=== PATIENT | female | born 1950 | race Caucasian/White ===

== ENCOUNTER → 2016-06-29 | Outpatient (CLI) | payer MEDICARE, OTHER ==
--- NOTE | 2016-06-30 13:44 | MM ---
Reason for exam: screening (asymptomatic). Last mammogram was performed 1 year and 2 months ago. History: Patient is postmenopausal and is nulliparous. Benign US breast aspiration single RT of the right breast, October 29, 2014. Cyst aspiration of the left breast. Took estrogen for 5 years. Took progesterone for 5 years. Physical Findings: A clinical breast exam by your physician is recommended on an annual basis and results should be correlated with mammographic findings. MG 3D Screening Mammo W/Cad Bilateral CC and MLO view(s) were taken. Prior study comparison: April 22, 2015, right breast MG 3d diag mammo w/cad RT. October 29, 2014, right breast MG diagnostic mammo RT w CAD. There are scattered fibroglandular densities. There is chronic nodularity on the left breast. No significant changes when compared with prior studies. ASSESSMENT: Benign, BI-RAD 2 RECOMMENDATION: Routine screening mammogram of both breasts in 1 year.
== END | disposition home or self-care (01) ==
LOC: RADMAMWWP 16:25
PROVIDERS: ATTEND Family Medicine
DX: Z12.31 Encounter for screening mammogram for malignant neoplasm of breast (principal)
CPT/HCPCS: 77063; G0202

== ENCOUNTER → 2018-02-10 | Outpatient (CLI) | payer MEDICARE, OTHER ==
--- NOTE | 2018-02-10 10:40 | BD ---
EXAMINATION TYPE: Axial Bone Density DATE OF EXAM: 02/10/2018 CLINICAL HISTORY: Postmenopausal female. Osteoporosis screening. Height: 62.75 inches Weight: 220 FRAX RISK QUESTIONS: Alcohol (3 or more units per day): no Family History (Parent hip fracture): no Glucocorticoids (More than 3mos): no (Ex: prednisone, prednisolone, methylprednisolone, dexamethasone, and hydrocortisone). History of Fracture in Adulthood: no Secondary Osteoporosis: 1. Type 1 Diabetes: no 2. Hyperthyroidism: no 3. Menopause before 45: yes 4. Malnutrition: no 5. Chronic liver disease: no Rheumatoid Arthritis: tested but results unclear Current Tobacco Use: no RISK FACTORS HISTORY OF: Family History of Osteoporosis: mother & sister Active: yes Diet low in dairy products/other sources of calcium: lactose intolerant; but includes calcium rich f oods during week Postmenopausal woman: yes Take estrogen and/or progesterone medications: not now How long: about 5 years Lost more than 2 inches in height since high school: no Frequent falls: no Poor Health: no Hyperparathyroidism: no Adrenal Insufficiency: no MEDICATIONS: Prednisone or other steroids: no Thyroid Medications: no Osteoporosis Medications: no Additional Medications: eyedrops with steroids ; vitamin D; beta-jos Additional History: stage 3 kidney disease-Aleve induced; mitral valve prolapse EXAM MEASUREMENTS: Bone mineral densitometry was performed using the [employer] System. Bone mineral density as measured about the Lumbar spine is: ----- L1-L4(G/cm2): 1.100 T Score Values are as follows: ----- L2: -1.5 ----- L3: 0.4 ----- L4: 0.0 ----- L1-L4: -0.7 Bone mineral density has: Increased 8.2% since study of: 12/08/2001 Bone mineral density about the R hip (g/cm2): 0.781 Bone mineral density about the L hip (g/cm2): 0.751 T Score values are as follows: -----R Neck: -1.8 -----L Neck: -2.1 -----R Total: -1.7 -----L Total: -1.6 Bone mineral density has: Decreased -5.3% since study of: 12/08/2001 IMPRESSION: Osteopenia (T Score between -2.5 and -1). There is slightly increased risk of fracture and the patient may be considered for treatment. Re-Screen 2-5 years. NOTE: T-SCORE=SD OF THE YOUNG ADULT MEAN.
--- NOTE | 2018-02-10 12:36 | MM ---
Reason for exam: screening (asymptomatic). Last mammogram was performed 1 year and 7 months ago. History: Patient is postmenopausal and is nulliparous. Benign US breast aspiration single RT of the right breast, October 29, 2014. Cyst aspiration of the left breast. Took estrogen for 5 years. Took progesterone for 5 years. Physical Findings: A clinical breast exam by your physician is recommended on an annual basis and results should be correlated with mammographic findings. MG 3D Screening Mammo W/Cad Bilateral CC and MLO view(s) were taken. XCCM and XCCL view(s) were taken of the right breast. Prior study comparison: June 29, 2016, bilateral MG 3d screening mammo w/cad. April 22, 2015, right breast MG 3d diag mammo w/cad RT. Focal asymmetry 4cm from nipple outer right CC. Increasing nodularity upper outer left breast 4.2cm from nipple. This finding is changed when compared with previous exams. ASSESSMENT: Incomplete: need additional imaging evaluation, BI-RAD 0 RECOMMENDATION: Special view mammogram and ultrasound of both breasts. [facility] will attempt to contact patient to return for supplemental views and ultrasound.
== END | disposition home or self-care (01) ==
LOC: RADMAMWWP 07:21
PROVIDERS: ATTEND Family Medicine
DX: Z12.31 Encounter for screening mammogram for malignant neoplasm of breast (principal); M85.80 Other specified disorders of bone density and structure, unspecified site; Z78.0 Asymptomatic menopausal state
CPT/HCPCS: 77063; 77067; 77080

== ENCOUNTER → 2018-02-18 | Outpatient (CLI) | payer MEDICARE, OTHER ==
--- NOTE | 2018-02-21 09:28 | MM ---
Reason for exam: additional evaluation requested from abnormal screening. Last mammogram was performed less than 1 month ago. History: Patient is postmenopausal and is nulliparous. Benign US breast aspiration single RT of the right breast, October 29, 2014. Cyst aspiration of the left breast. Took estrogen for 5 years. Took progesterone for 5 years. Physical Findings: Nurse did not find any significant physical abnormalities on exam. MG 3D Work Up W/Cad JODI Bilateral spot compression CC, spot compression MLO, and ML view(s) were taken. CC with magnification and ML with magnification view(s) were taken of the right breast. Prior study comparison: February 10, 2018, bilateral MG 3d screening mammo w/cad. June 29, 2016, bilateral MG 3d screening mammo w/cad. Finding: There are round, segmental calcifications in the 12 o'clock middle position of the right breast 3cm from the nipple. These are more scattered on magnification views. Density outer right CC disperses on compression. No underlying density on left MLO. There are persistent oval densities. New finding since February 10, 2018. These results were verbally communicated with the patient and result sheet given to the patient on 02/18/18. ASSESSMENT: Incomplete: need additional imaging evaluation, BI-RAD 0 RECOMMENDATION: Ultrasound of the left breast.
--- NOTE | 2018-02-21 09:34 | USB ---
Reason for exam: additional evaluation requested from abnormal screening. History: Patient is postmenopausal and is nulliparous. Benign US breast aspiration single RT of the right breast, October 29, 2014. Cyst aspiration of the left breast. Took estrogen for 5 years. Took progesterone for 5 years. US Breast Workup Limited LT Left limited breast ultrasound including focal area of concern, retroareolar and axilla demonstrates a 1.1 x 0.6 x 0.9cm oval, cystic lesion at 3 o'clock, correlates with mammographic findings. These results were verbally communicated with the patient and result sheet given to the patient on 02/18/18. ASSESSMENT: Benign, BI-RAD 2 RECOMMENDATION: Return to routine screening mammogram schedule for both breasts.
== END ==
LOC: RADMAMWWP 14:01
PROVIDERS: ATTEND Family Medicine
DX: R92.8 Other abnormal and inconclusive findings on diagnostic imaging of breast (principal)
CPT/HCPCS: 77066; 76642; G0279; 77062

== ENCOUNTER → 2022-03-09 | Outpatient (CLI) | payer MEDICARE, OTHER ==
--- NOTE | 2022-03-10 20:18 | MM ---
Reason for Exam: Screening (asymptomatic). Last mammogram was performed 4 year(s) and 0 month(s) ago. Patient History: Menarche at age 13. Patient has no children. Postmenopausal. Patient used Estrogen for 5 years. Patient used Progesterone for 5 years. Cyst Aspiration on the Left side. 10/29/2014, Benign Cyst Aspiration on the right side. Risk Values: Jaycee 5 year model risk: 1.9%. NCI Lifetime model risk: 5.4%. Prior Study Comparison: 06/29/2016 Bilateral Screening Mammogram, [facility]. 02/10/2018 Bilateral Screening Mammogram, [facility]. 02/18/2018 Bilateral Diagnostic Mammogram, [facility]. Tissue Density: The breast tissue is heterogeneously dense. This may lower the sensitivity of mammography. Findings: Analyzed By CAD. Chronic bilateral nodularity. Scattered areas of punctate/round and coarse calcifications are redemonstrated. There is a area of irregular asymmetric density right MLO view and a middle depth just below the retroareolar plane for which further evaluation is recommended. It may represent superimposition shadow. There is also an area of 9 mm circumscribed nodularity which is larger in the subareolar left MLO view for which further evaluation is recommended. Not well-seen on the cc view. Otherwise, no significant change. Overall Assessment: Incomplete: need additional imaging evaluation, BI-RAD 0 Management: Special View Mammogram of both breasts. On the right, to include spot 3-D CC, spot 3-D MLO, and 3-D lateral views. On the left, to include spot 3-D MLO, and 3-D lateral views. Targeted ultrasound of either breast for any persisting abnormality. [facility] will attempt to contact patient to return for supplemental views and ultrasound if indicated. Electronically signed and approved by: Luis Calvo M.D. Radiologist
== END | disposition home or self-care (01) ==
LOC: RADMAMWWP 16:48
PROVIDERS: ATTEND Family Medicine
DX: Z12.31 Encounter for screening mammogram for malignant neoplasm of breast (principal); Z78.0 Asymptomatic menopausal state
CPT/HCPCS: 77063; 77067

== ENCOUNTER → 2022-03-17 | Outpatient (CLI) | payer MEDICARE, OTHER ==
--- NOTE | 2022-03-17 12:32 | USB ---
Reason for Exam: Additional evaluation requested from abnormal screening. Patient History: Menarche at age 13. Patient has no children. Postmenopausal. Patient used Estrogen for 5 years. Patient used Progesterone for 5 years. Cyst Aspiration on the Left side. 10/29/2014, Benign Cyst Aspiration on the right side. Risk Values: Jaycee 5 year model risk: 1.9%. NCI Lifetime model risk: 5.4%. Technique: Method: Targeted. Prior Study Comparison: 02/10/2018 Bilateral Screening Mammogram, [facility]. 02/18/2018 Bilateral Diagnostic Mammogram, [facility]. 03/09/2022 Bilateral MG 3D screening mammo w/cad, [facility]. Findings: The upper outer quadrant of the left breast, the axilla of the left breast and the retroareolar of the left breast were scanned. 2 nearby cysts are present within the anterior left breast 3 cm from the nipple 3:00 position. The first measures 0.6 x 0.5 x 0.5 cm. The second measures 0.5 x 0.5 x 0.5 cm. These appear to be simple cysts. Overall Assessment: Benign, BI-RAD 2 Management: Diagnostic Mammogram of both breasts in 6 months. A clinical breast exam by your physician is recommended on an annual basis and results should be correlated with mammographic findings. This exam should not preclude additional follow-up of suspicious palpable abnormalities. ??Results were given to the patient verbally at the time of exam. Electronically signed and approved by: Alvaro Benjamin D.O. Radiologis
--- NOTE | 2022-03-17 12:34 | MM ---
Reason for Exam: Additional evaluation requested from prior study. Last screening mammogram was performed less than 1 month ago. Patient History: Menarche at age 13. Patient has no children. Postmenopausal. Patient used Estrogen for 5 years. Patient used Progesterone for 5 years. Cyst Aspiration on the Left side. 10/29/2014, Benign Cyst Aspiration on the right side. Risk Values: Jaycee 5 year model risk: 1.9%. NCI Lifetime model risk: 5.4%. Prior Study Comparison: 02/18/2018 Bilateral Diagnostic Mammogram, [facility]. 03/09/2022 Bilateral MG 3D screening mammo w/cad, [facility]. Tissue Density: The breast tissue is heterogeneously dense. This may lower the sensitivity of mammography. Findings: Analyzed By CAD. Pattern appears symmetrical and stable. Left breast: There is persistence of the rounded density with smooth margins in the anterior left breast. Additional evaluation with ultrasound is recommended. Right breast: Under compression and additional imaging no suspicious irregular density is identified within the right breast corresponding higher abnormality. Findings may be summation density. Short-term follow-up is recommended. Overall Assessment: Incomplete: need additional imaging evaluation, BI-RAD 0 Management: Diagnostic Breast Ultrasound of the left breast. A clinical breast exam by your physician is recommended on an annual basis and results should be correlated with mammographic findings. This exam should not preclude additional follow-up of suspicious palpable abnormalities. Results were given to the patient verbally at the time of exam. Electronically signed and approved by: Alvaro Benjamin D.O. Radiologis
== END | disposition home or self-care (01) ==
LOC: RADMAMWWP 10:06
PROVIDERS: ATTEND Family Medicine
DX: R92.8 Other abnormal and inconclusive findings on diagnostic imaging of breast (principal); Z78.0 Asymptomatic menopausal state; Z98.890 Other specified postprocedural states
CPT/HCPCS: 77066; 76642; G0279; 77062

== ENCOUNTER 2022-09-04 08:38 | Day surgery (SDC) | payer MEDICARE, OTHER ==
[2022-09-02 12:11] VITALS: BMI 40.7
[~2022-09-04 08:38] MED LIST: LACTATED RINGERS 1,000 ML IV SCH
[2022-09-04 09:29] VITALS: RESP 16; TEMP 98
[2022-09-04] MEDS ORDERED: PROPOFOL 10 MG/ML 20 ML VIAL IV ONE (09:54)
--- NOTE | 2022-09-04 10:19 | P.PCN ---
Date of Procedure: 09/04/22 Procedure(s) Performed: BRIEF HISTORY: Patient is a 72-year-old pleasant white female scheduled for an elective colonoscopy as a part of evaluation of screening for colon cancer/positive cologuard PROCEDURE PERFORMED: Colonoscopy with snare polypectomy. PREOPERATIVE DIAGNOSIS: Screening for colon cancer/positive cologuard. IV sedation per Anesthesia. PROCEDURE: After informed consent was obtained, the patient, was brought into the endoscopy unit. IV sedation was administered by Anesthesia under continuous monitoring. Digital rectal examination was normal. Initially the Olympus CF-160 flexible video colonoscope was then inserted in the rectum, gradually advanced into the cecum without any difficulty. Careful examination was performed as the scope was gradually being withdrawn. Ileocecal valve and the appendiceal orifice were visualized and appeared normal. Prep was excellent. Mucosa of the cecum, ascending colon, transverse colon, appeared normal In the descending colon there was a 5 mm sessile polyp removed by snare polypectomy. Rest of the descending colon, sigmoid colon, and rectum appeared normal. Retroflexion was performed in the rectum and no lesions were seen. The patient tolerated the procedure well. IMPRESSION: 5 mm descending colon polyp status post polypectomy Scattered sigmoid diverticulosis RECOMMENDATIONS: Findings of this examination were discussed with the patient as well as her family. She was advised to follow with the biopsy results. If the biopsy results adenoma she can have a repeat colonoscopy in 5 years.
[2022-09-04 10:41] VITALS: BP 131/69; PULSE 77
== END 2022-09-04 11:02 ==
LOC: ORWHC2ENDO 08:38
PROVIDERS: ATTEND Internal Medicine Gastroenterology
DX: D12.4 Benign neoplasm of descending colon (principal); K57.30 Diverticulosis of large intestine without perforation or abscess without bleeding; G47.33 Obstructive sleep apnea (adult) (pediatric); N18.30 Chronic kidney disease, stage 3 unspecified; K21.9 Gastro-esophageal reflux disease without esophagitis; Z90.89 Acquired absence of other organs; Z98.890 Other specified postprocedural states; Z79.899 Other long term (current) drug therapy
CPT/HCPCS: 45385; J2704; 88305

== ENCOUNTER → 2023-06-30 | Outpatient (CLI) | payer MEDICARE, OTHER ==
--- NOTE | 2023-06-30 10:01 | MM ---
Reason for Exam: Follow-up at short interval from prior study. Last mammogram was performed 1 year(s) and 4 month(s) ago. Patient History: Menarche at age 13. Patient has no children. Postmenopausal. Patient used Estrogen for 5 years. Patient used Progesterone for 5 years. Cyst Aspiration on the Left side. 10/29/2014, Benign Cyst Aspiration on the right side. Risk Values: Jaycee 5 year model risk: 2.0%. NCI Lifetime model risk: 4.8%. Prior Study Comparison: 03/04/1995 Screening Mammogram, Unknown. 02/18/2018 Left Diagnostic Ultrasound, [facility]. 03/09/2022 Bilateral MG 3D screening mammo w/cad, [facility]. 03/17/2022 Left US breast limited LT, [facility]. 03/17/2022 Bilateral MG 3D work up w/cad JODI, [facility]. 03/17/2022 Left US breast workup limited LT, [facility]. Tissue Density: The breasts are heterogeneously dense, which may obscure small masses. Findings: Analyzed By CAD. There is a 1.1 cm area of lobulated nodularity outer aspect of the right breast anterior to middle depth which appears more defined. However, the area becomes less pronounced on additional views possibly reflecting superimposition shadow. Some subtle nodularity is apparent on the 3-D lateral view. Further ultrasound evaluation recommended. Additional areas of asymmetric density are unchanged. Overall Assessment: Incomplete: need additional imaging evaluation, BI-RAD 0 Management: Diagnostic Breast Ultrasound of the right breast. Upper outer quadrant. Electronically signed and approved by: Luis Calvo M.D. Radiologist
--- NOTE | 2023-06-30 10:32 | USB ---
Reason for Exam: Additional evaluation requested from abnormal screening. Patient History: Menarche at age 13. Patient has no children. Postmenopausal. Patient used Estrogen for 5 years. Patient used Progesterone for 5 years. Cyst Aspiration on the Left side. 10/29/2014, Benign Cyst Aspiration on the right side. Risk Values: Jaycee 5 year model risk: 2.0%. NCI Lifetime model risk: 4.8%. Technique: Method: Targeted. Doppler: Color. Patient Position: LPO. Prior Study Comparison: 02/18/2018 Bilateral Diagnostic Mammogram, [facility]. 03/09/2022 Bilateral MG 3D screening mammo w/cad, [facility]. 03/17/2022 Bilateral MG 3D work up w/cad [facility], [facility]. Findings: The upper outer quadrant of the right breast, the axilla of the right breast and the retroareolar of the right breast were scanned. Targeted ultrasound right breast 9:00 to 12:00 including scanning of the subareolar region and axilla. At the 9:00 position, 4 cm from the nipple, there is a probable cluster measuring 8 x 8 x 6 mm. At the 10:00 position, 4 cm from the nipple, there is a probable cyst cluster measuring 9 x 7 x 4 mm. At the 11:00 position, 4 cm from the nipple, there is a probable cyst cluster measuring 7 x 5 mm. At the 11:00 position, 3 cm from the nipple, there is a probable 6 x 4 mm cyst cluster. At the 11:00 position, 1 cm from the nipple, there is a tiny area too small to characterize measuring 5 mm. Benign-appearing lymph nodes in the axilla. Overall Assessment: Probably benign, BI-RAD 3 Management: Diagnostic Mammogram of the right breast in 6 months. A clinical breast exam by your physician is recommended on an annual basis and results should be correlated with mammographic findings. This exam should not preclude additional follow-up of suspicious palpable abnormalities. Results were given to the patient verbally at the time of exam. Electronically signed and approved by: Luis Calvo M.D. Radiologist
--- NOTE | 2023-06-30 15:11 | BD ---
EXAMINATION TYPE: Axial Bone Density DATE OF EXAM: 06/30/2023 CLINICAL HISTORY: 73 years old Female. ICD-10 CODE: M85.80 OTH DISRD OF BONE DENSITY AND STRUCTURE Height: 61.8 Weight: 238 FRAX RISK QUESTIONS: Family History (Parent hip fracture): yes, mother Glucocorticoids (More than 3mos): yes, copd and asthma (Ex: prednisone, prednisolone, methylprednisolone, dexamethasone, and hydrocortisone). Secondary Osteoporosis: yes 3. Menopause before 45: yes at age 40 yrs old naturally Rheumatoid Arthritis: tests positive Current Tobacco Use: quit 23 yrs ago RISK FACTORS HISTORY OF: nothing to note here except arthritis, heart and renal conditions. MEDICATIONS: bp meds, heart meds, EXAM MEASUREMENTS: Bone mineral densitometry was performed using the [employer] System. Bone mineral density as measured about the Lumbar spine is: ----- L1-L4(G/cm2): 1.194 T Score Values are as follows: ----- L1: -1.4 ----- L2: -0.1 ----- L3: -0.5 ----- L4: 1.8 ----- L1-L4: 0.1 Z Score Values are as follows: ----- L1: -0.9 ----- L2: 0.5 ----- L3: 0.1 ----- L4: 2.3 ----- L1-L4: 0.7 Bone mineral density has: Increased 8.5% since study of: 02.10.2018 Bone mineral density about the R hip (g/cm2): 0.781 Bone mineral density about the L hip (g/cm2): 0.822 T Score values are as follows: -----R Neck: -2.1 -----L Neck: -2.4 -----R Total: -1.8 -----L Total: -1.5 Z Score values are as follows: -----R Neck: -1.0 -----L Neck: -1.3 -----R Total: -1.0 -----L Total: -0.7 Bone mineral density has: Increased 0.1% since study of: 02.10.2018 FRAX%s: The graph provided illustrates a 41.3% chance for a major osteoporotic fx and a 24.0% chance for the hips probability for fx in 10 years time. IMPRESSION: Osteopenia (T Score between -2.5 and -1). There is slightly increased risk of fracture and the patient may be considered for treatment. Re-Screen 2-5 years. NOTE: T-SCORE=SD OF THE YOUNG ADULT MEAN.
== END | disposition home or self-care (01) ==
LOC: RADMAMWWP 09:17
PROVIDERS: ATTEND Family Medicine
DX: M85.89 Other specified disorders of bone density and structure, multiple sites (principal); R92.333 Mammographic heterogeneous density, bilateral breasts; Z78.0 Asymptomatic menopausal state
CPT/HCPCS: 77080; 77066; 76642; G0279; 77062

== ENCOUNTER → 2023-12-28 | Outpatient (CLI) | payer MEDICARE, OTHER | END | disposition home or self-care (01) | LOC: LABWHC1 10:06 | DX: H05.20 Unspecified exophthalmos (principal) | CPT/HCPCS: 36415; 84443; 84445 ==

== ENCOUNTER → 2024-06-30 | Outpatient (CLI) | payer MEDICARE, OTHER ==
--- NOTE | 2024-06-30 11:32 | MM ---
Reason for Exam: Follow-up at short interval from prior study. Last screening mammogram was performed 12 month(s) ago. Patient History: Menarche at age 13. Patient has no children. Postmenopausal. Patient used Estrogen for 5 years. Patient used Progesterone for 5 years. Cyst Aspiration on the Left side. 10/29/2014, Benign Cyst Aspiration on the right side. Risk Values: Jaycee 5 year model risk: 2.0%. NCI Lifetime model risk: 4.5%. Tissue Density: The breasts are heterogeneously dense, which may obscure small masses. Findings: Analyzed By CAD. No distinct mass or distortion. Punctate benign calcifications persists. No suspicious clusters are evident. Overall Assessment: Benign, BI-RAD 2 Management: Screening Mammogram of both breasts in 1 year. . Results were given to the patient verbally at the time of exam. Patient should continue monthly self-breast exams. A clinical breast exam by your physician is recommended on an annual basis. This exam should not preclude additional follow-up of suspicious palpable abnormalities. Note on Jaycee scores and lifetime risk: 1. A Jaycee score greater than 3% is considered moderate risk. If this is the case, consider specialist referral to assess eligibility for a risk reducing agent. 2. If overall lifetime risk for the development of breast cancer is 20% or higher, the patient may qualify for future screening with alternating mammogram and breast MRI. [facility], , 06/30/2024 11:29 AM. Electronically signed and approved by: Tacos Franklin M.D. Radiologis
== END | disposition home or self-care (01) ==
LOC: RADMAMWWP 10:41
PROVIDERS: ATTEND Family Medicine
DX: R92.8 Other abnormal and inconclusive findings on diagnostic imaging of breast (principal); R92.333 Mammographic heterogeneous density, bilateral breasts; Z78.0 Asymptomatic menopausal state
CPT/HCPCS: 77066; G0279; 77062

== ENCOUNTER → 2024-08-30 | Outpatient (CLI) | payer MEDICARE, OTHER ==
[2024-08-30 14:53] LABS: Basophils # (A) 0.09 X 10*3/uL (0.00-0.10); Basophils % (A) 1.1 %; Eosinophils % (A) 3.6 %; HCT 38.8 % (37.2-46.3); HGB 12.7 g/dL (12.0-15.0); Lymphocytes # (A) 2.44 X 10*3/uL (0.90-5.00); Lymphocytes % (A) 29.5 %; MCH 31.5 pg (27.0-32.0); MCHC 32.7 g/dL (32.0-37.0); MCV 96.3 FL (80.0-97.0); Mean Platelet Volume 11.1 FL (9.5-12.2); Monocytes # (A) 0.59 X 10*3/uL (0.20-1.00); Monocytes % (A) 7.1 %; NRBC Per 100 WBC 0 X 10*3/uL (0.00-0.01); Neutrophils # (A) 4.82 X 10*3/uL (1.80-7.70); Neutrophils % (A) 58.5 %; Platelet Count 248 X 10*3/uL (140-440); RBC 4.03 X 10*6/uL (4.10-5.20); RDW 12.9 % (11.5-14.5); WBC 8.26 X 10*3/uL (4.50-10.00)
[2024-08-30 15:28] LABS: ALT 18 U/L (8-44); AST 23 U/L (13-35); Albumin 4.1 g/dL (3.8-4.9); Albumin/Globulin Ratio 1.78 Ratio (1.60-3.17); Alkaline Phosphatase 96 U/L (41-126); BUN/Creat Ratio 18.22 Ratio (12.00-20.00); Blood Urea Nitrogen 16.4 mg/dL (9.0-27.0); Calcium 9.6 mg/dL (8.7-10.3); Carbon Dioxide 23.3 mmol/L (21.6-31.8); Chloride 106 mmol/L (96-109); Chol/HDL Ratio 4.58 Ratio; Globulin 2.3 g/dL (1.6-3.3); Glucose 142 mg/dL (70-110); LDL Cholesterol,Calculated 120.7 mg/dL (0.0-131.0); Potassium 4.3 mmol/L (3.5-5.5); Sodium 141 mmol/L (135-145); Total Bilirubin 0.4 mg/dL (0.3-1.2); Total Protein 6.4 g/dL (6.2-8.2)
[2024-08-30 16:15] LABS: Hepatitis C IgG Antibody Nonreactive (Nonreactive)
== END | disposition home or self-care (01) ==
LOC: LABWHC1 10:23
PROVIDERS: ATTEND Family Medicine
DX: Z11.59 Encounter for screening for other viral diseases (principal); I12.9 Hypertensive chronic kidney disease with stage 1 through stage 4 chronic kidney disease, or unspecified chronic kidney disease; N18.9 Chronic kidney disease, unspecified
CPT/HCPCS: 36415; 80053; 80061; 85025; 86803; 87522